=== PATIENT | female | born 1995 | race Caucasian/White ===

== ENCOUNTER 2019-07-11 12:07 | Emergency (ER) | payer BC, OTHER ==
--- OUTSIDE RECORDS SUMMARY | 2019-07-11 12:21 | XMS REPORT | Summary of Care ---
:1995 Author Name Trinity Antoine M.A. Address [facility] Unavailable , Care Team Providers Name Role Phone MARI ENGLISH M.D. Unavailable Unavailable JACKIE NEVES MD Unavailable Unavailable Unavailable Unavailable Unavailable Functional Status Name Dates Details Functional status health issues are not documented Status: Name Dates Details Cognitive status health issues are not documented Status: Problems Name Dates Details Pain of left hand (729.5, M79.642) Status: Active Closed displaced fracture of shaft of fifth metacarpal bone of left hand, initial encounter (815.03, Q62.327A) Status: Active Medications Name Dates Details Medications not documented Allergies and Adverse Reactions Name Dates Details Allergy history not documented Status: Procedures Procedure Dates Details [U] XRAY HAND MIN 3 VWS LEFT [id number] Date: 21-Jan-2018 Immunization Name Dates Details Immunizations not documented Social History Name Dates Details Unknown if ever smoked Vital Signs Date Test Result Details No Known Vitals to report Results Date Description Value Details [id number] [U] XRAY HAND MIN 3 VWS LEFT [id number] XR HAND MIN 3 VWS LEFT Images acquired, not reported on this accession number. [id number] [U] XRAY HAND MIN 3 VWS LEFT [id number] XR HAND MIN 3 VWS LEFT Images acquired, not reported on this accession number. Plan of Care Name Dates Details Planned Observations Planned Goals not documented Interventions Provided Labs/Procedures/Imaging[U] XRAY HAND MIN 3 VWS LEFT [id number]; To Be Done: 21 Jan 2018 Instructions Name Dates Details Instructions not documented Encounters Appointment; MARI ENGLISH M.D. On: 15-Dec-2017 14:00 Encounter Diagnosis: Problem not documented Appointment; MARI ENGLISH M.D. On: 24-Dec-2017 13:30 Encounter Diagnosis: Problem not documented Appointment; MARI ENGLISH M.D. On: 24-Dec-2017 14:00 Encounter Diagnosis: Problem not documented Appointment; MARI ENGLISH M.D. On: 07-Jan-2018 11:30 Encounter Diagnosis: Problem not documented Appointment; MARI ENGLISH M.D. On: 21-Jan-2018 10:45 Encounter Diagnosis: Problem not documented
--- OUTSIDE RECORDS SUMMARY | 2019-07-11 12:21 | XMS REPORT ---
:1995 Author Organization [employer] Care Team Providers Name Role Phone Sneha Lopez Provider Role Unavailable Allergies, Adverse Reactions, Alerts Substance Reaction Event Type N.K.D.A. Info Not Available Non Drug Allergy Problems Problem Type Condition Code Onset Dates Condition Status Problem Medical history non-contributory Z78.9 Active Problem IUD (intrauterine device) in place Z97.5 Active Problem Pharyngitis, unspecified etiology J02.9 Active Assessment Pharyngitis, unspecified etiology J02.9 Active Medications Medication Code Code Instructions Start End Status Dosage System Date Date DayQuil NDC 0 Active not Multi-Symptom defined Mirena NDC 0 Active not defined Augmentin NDC 06245243038 875-125 MG November 19, Active 1 tablet Orally every 12 2018 hrs Results Name Result Date Reference Range Unit Abnormality Flag STREP A RAPID ----Result NEG [id number] Summary Purpose eClinicalWorks Submission
--- OUTSIDE RECORDS SUMMARY | 2019-07-11 12:21 | XMS REPORT ---
:1995 Author Organization [employer] Care Team Providers Name Role Phone Sneha Lopez Provider Role Unavailable Allergies, Adverse Reactions, Alerts Substance Reaction Event Type N.K.D.A. Info Not Available Non Drug Allergy Problems Problem Type Condition Code Onset Dates Condition Status Problem Pharyngitis, unspecified etiology J02.9 Active Problem Medical history non-contributory Z78.9 Active Problem Acute bacterial conjunctivitis of H10.32 Active left eye Assessment Acute bacterial conjunctivitis of H10.32 Active left eye Problem IUD (intrauterine device) in place Z97.5 Active Medications Medication Code Code Instructions Start End Date Status Dosage System Date Mirena NDC 0 Active not defined Polytrim NDC 98364339676 89648-9.1 Active 1 drop into UNIT/ML affected eye Ophthalmic Four times a day Results No Known Results Summary Purpose eClinicalWorks Submission
[2019-07-11] MEDS ORDERED: AMOX/K CLAV 875 MG TAB ONE (13:02)
[2019-07-11] MEDS ORDERED: KETOROLAC 30 MG/ML INJ ONE (13:03)
--- NOTE | 2019-07-11 13:14 | EDPHYS ---
Physician Documentation [facility] Name: Nicole Gomez Age: 24 yrs Sex: Female : 1995 Arrival Date: 07/11/2019 Time: 12:11 Bed 17 Private MD: ED Physician Ghassan Cummings HPI: 07/10 21:21 This 24 yrs old Female presents to ER via Ambulatory with complaints of Dog tw4 Bite. 21:21 The patient was bitten on the right hand and left hand, by a dog. Onset: The tw4 symptoms/episode began/occurred just prior to arrival, today. Animal information: The animal is known and can be quarantined. Severity of symptoms: At their worst the symptoms were mild, in the emergency department the symptoms are unchanged. The patient has not experienced similar symptoms in the past. 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 - Social history:: Smoking status: Patient denies any tobacco usage or history of. ROS: 21:21 Constitutional: Negative for fever, chills, and weight loss, Cardiovascular: Negative tw4 for chest pain, palpitations, and edema, Respiratory: Negative for shortness of breath, cough, wheezing, and pleuritic chest pain, Abdomen/GI: Negative for abdominal pain, nausea, vomiting, diarrhea, and constipation. 21:21 MS/Extremity: Negative for injury and deformity, Skin: Negative for injury, rash, and discoloration, Neuro: Negative for headache, weakness, numbness, tingling, and seizure. 21:21 : Positive for 21:21 MS/extremity: Positive for injury or acute deformity, abrasion, puncture. Exam: 21:21 Constitutional: This is a well developed, well nourished patient who is awake, alert, tw4 and in no acute distress. Head/Face: Normocephalic, atraumatic. Chest/axilla: Normal chest wall appearance and motion. Nontender with no deformity. No lesions are appreciated. Cardiovascular: Regular rate and rhythm with a normal S1 and S2. No gallops, murmurs, or rubs. Normal PMI, no JVD. No pulse deficits. Respiratory: Lungs have equal breath sounds bilaterally, clear to auscultation and percussion. No rales, rhonchi or wheezes noted. No increased work of breathing, no retractions or nasal flaring. Abdomen/GI: Soft, non-tender, with normal bowel sounds. No distension or tympany. No guarding or rebound. No evidence of tenderness throughout. Skin: Warm, dry with normal turgor. Normal color with no rashes, no lesions, and no evidence of cellulitis. Neuro: Awake and alert, GCS 15, oriented to person, place, time, and situation. Cranial nerves II-XII grossly intact. Motor strength 5/5 in all extremities. Sensory grossly intact. Cerebellar exam normal. Normal gait. 21:21 Musculoskeletal/extremity: Extremities: pain, puncture. Vital Signs: 12:23 BP 119 / 81; Pulse 116; Resp 17 S; Temp 98.8(TE); Pulse Ox 97% on R/A; Weight 88.45 kg ca1 (R); Height 5 ft. 1 in. (154.94 cm) (R); Pain 8/10; 13:28 BP 120 / 78; Pulse 90; Resp 18; Temp 98; Pulse Ox 100% on R/A; mg2 12:23 Body Mass Index 36.84 (88.45 kg, 154.94 cm) ca1 MDM: 12:35 Patient medically screened. tw4 21:21 Differential diagnosis: superficial laceration, tendon injury. Data reviewed: vital tw4 signs, nurses notes. Counseling: I had a detailed discussion with the patient and/or guardian regarding: the historical points, exam findings, and any diagnostic results supporting the discharge/admit diagnosis. 07/10 12:44 Order name: Wound Care; Complete Time: 13:24 tw4 07/10 12:44 Order name: Wound dressing; Complete Time: 13:24 tw4 Administered Medications: 13:20 Drug: TORadol 60 mg Route: IM; Site: right gluteus; mg2 13:24 Follow up: Response: No adverse reaction mg2 13:24 Drug: ADAcel 0.5 ml {Property Management Assistant: [employer]. Exp: 05/25/2021. Lot #: [id number]. } mg2 Route: IM; Site: right deltoid; 13:25 Follow up: Response: No adverse reaction; Medication administered at discharge. mg2 13:24 Drug: Augmentin 875 mg Route: PO; mg2 13:24 Follow up: Response: No adverse reaction; Medication administered at discharge. mg2 Disposition: 07/11/19 13:12 Discharged to Home. Impression: Bitten by dog, Abrasion of left front wall of thorax. - Condition is Stable. - Discharge Instructions: Animal Bite. - Prescriptions for Augmentin 875- 125 mg Oral Tablet - take 1 tablet by ORAL route every 12 hours for 10 days; 20 tablet. Ibuprofen 800 mg Oral Tablet - take 1 tablet by ORAL route every 8 hours As needed take with food; 30 tablet. - Medication Reconciliation Form, Thank You Letter, Antibiotic Education, Prescription Opioid Use form. - Follow up: Private Physician; When: Upon discharge from the Emergency Department; Reason: Recheck today's complaints, Continuance of care, Re-evaluation by your physician. - Problem is new. - Symptoms have improved. Signatures: Ghassan Cummings MD MD tw4 Jose Cho, RN RN mg2 Dina Olivo RN RN ca1 Corrections: (The following items were deleted from the chart) 13:29 13:12 07/11/2019 13:12 Discharged to Home. Impression: Bitten by dog; Abrasion of left mg2 front wall of thorax. Condition is Stable. Forms are Medication Reconciliation Form, Thank You Letter, Antibiotic Education, Prescription Opioid Use. Follow up: Private Physician; When: Upon discharge from the Emergency Department; Reason: Recheck today's complaints, Continuance of care, Re-evaluation by your physician. Problem is new. Symptoms have improved. tw4
--- NOTE | 2019-07-11 13:14 | ER ---
Nurse's Notes [facility] Name: Nicole Gomez Age: 24 yrs Sex: Female : 1995 Arrival Date: 07/11/2019 Time: 12:11 Bed 17 Private MD: Diagnosis: Bitten by dog;Abrasion of left front wall of thorax Presentation: 07/10 12:23 Chief complaint: Patient states: Bit by a dog on the street about 30 minutes ago. Bite ca1 lynch on both arms, wrists and hands. Scratches on neck. Pt reports that they notified [facility]. Coronavirus screen: The patient has NOT traveled to [place] in the past 14 days. The patient has NOT had contact with known and/or suspected case of Coronavirus. Ebola Screen: Patient negative for fever greater than or equal to 101.5 degrees Fahrenheit, and additional compatible Ebola Virus Disease symptoms Patient denies exposure to infectious person. Patient denies travel to an Ebola-affected area in the 21 days before illness onset. No symptoms or risks identified at this time. Initial Sepsis Screen: Does the patient meet any 2 criteria? No. Patient's initial sepsis screen is negative. Does the patient have a suspected source of infection? No. Patient's initial sepsis screen is negative. Risk Assessment: Do you want to hurt yourself or someone else? Patient reports no desire to harm self or others. Onset of symptoms was July 11, 2019. 12:23 Method Of Arrival: Ambulatory ca1 12:23 Acuity: KIERAN 4 ca1 Triage Assessment: 13:28 Bite description: bite sustained to chest, right arm, left arm, back of left arm and mg2 back of right arm by a dog, animal information: vaccination(s) is current. General: Appears in no apparent distress. comfortable, Behavior is calm, cooperative. Pain: Complains of pain in arms. 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 - Social history:: Smoking status: Patient denies any tobacco usage or history of. Screenin:26 Abuse screen: Denies threats or abuse. Denies injuries from another. Nutritional mg2 screening: No deficits noted. Tuberculosis screening: No symptoms or risk factors identified. Fall Risk None identified. Assessment: 12:35 Reassessment: Spoke on the telephone with Java Groovy Developer Pablo Posey, he ca1 stated, "they refused to make a report". #[phone]. 13:29 Derm: Skin punctured wound in both arms and scratch on her chest Skin is pink, warm \\T\\ mg2 dry. normal. Vital Signs: 12:23 BP 119 / 81; Pulse 116; Resp 17 S; Temp 98.8(TE); Pulse Ox 97% on R/A; Weight 88.45 kg ca1 (R); Height 5 ft. 1 in. (154.94 cm) (R); Pain 8/10; 13:28 BP 120 / 78; Pulse 90; Resp 18; Temp 98; Pulse Ox 100% on R/A; mg2 12:23 Body Mass Index 36.84 (88.45 kg, 154.94 cm) ca1 ED Course: 12:11 Patient arrived in ED. ag5 12:29 Triage completed. ca1 12:29 Arm band placed on right wrist. ca1 12:35 Ghassan Cummings MD is Attending Physician. tw4 12:53 Jose Cho, DANE is Primary Nurse. mg2 13:26 No provider procedures requiring assistance completed. Patient did not have IV access mg2 during this emergency room visit. Wound care: to punctured wound in both arms and scratch on her upper chest was cleaned with Hibiclens, Patient tolerated well. 13:27 Patient has correct armband on for positive identification. mg2 Administered Medications: 13:20 Drug: TORadol 60 mg Route: IM; Site: right gluteus; mg2 13:24 Follow up: Response: No adverse reaction mg2 13:24 Drug: ADAcel 0.5 ml {Staff Accountant: [employer]. Exp: 05/25/2021. Lot #: [id number]. } mg2 Route: IM; Site: right deltoid; 13:25 Follow up: Response: No adverse reaction; Medication administered at discharge. mg2 13:24 Drug: Augmentin 875 mg Route: PO; mg2 13:24 Follow up: Response: No adverse reaction; Medication administered at discharge. mg2 Outcome: 13:12 Discharge ordered by . bayron 13:28 Discharged to home ambulatory. mg2 13:28 Condition: good 13:28 Discharge instructions given to patient, Instructed on discharge instructions, follow up and referral plans. medication usage, wound care, Demonstrated understanding of instructions, follow-up care, medications, wound care, Prescriptions given X 2. 13:29 Patient left the ED. mg2 Signatures: Ghassan Cummings MD MD tw4 Jose Cho RN RN mg2 Dina Olivo RN RN ca1 Sona Grubbs ag5 Corrections: (The following items were deleted from the chart) 12:30 12:29 LMP 06/2019 ca1 ca1
[2019-07-11] MEDS ORDERED: Tdap (Diph,Pertuss(Acell),Tet Vac) 0.5 ML SYR IMVAC ONE (14:00)
[2019-07-11 14:22] VITALS: BP 120/78; TEMP 98; O2SAT 100
== END 2019-07-11 13:29 | disposition home or self-care (01) ==
LOC: ER 12:07
DX: S60.572A Other superficial bite of hand of left hand, initial encounter (principal); S60.571A Other superficial bite of hand of right hand, initial encounter; S20.311A Abrasion of right front wall of thorax, initial encounter; W54.0XXA Bitten by dog, initial encounter; Y93.9 Activity, unspecified; Y92.9 Unspecified place or not applicable
CPT/HCPCS: 90471; 90715; 96372; 99283